=== PATIENT | male | born 1990 | race African-American/Black ===

== ENCOUNTER 2022-08-26 16:35 | Emergency (ER) | payer OTHER, SELFPAY ==
[2022-08-26 16:37] VITALS: BP 132/60; BP 138/75; PULSE 101; PULSE 114; RESP 18; TEMP 36.7; O2SAT 98; BMI 28.3
--- NOTE | 2022-08-26 16:49 | ED_ITS ---
HPI - Overdose General Chief Complaint: Overdose Stated Complaint: OVERDOSE. 4MG NARCAN GIVEN Time Seen by Provider: 08/26/22 16:44 Source: patient and EMS Mode of arrival: EMS Limitations: other (Patient not providing history.) History of Present Illness HPI Narrative: 32-year-old male presenting to the emergency department via ambulance from a residential for suspected opiate overdose, patient was found unresponsive by residential members, 4 mg of Narcan intranasally were administered with good success. Patient arrives to the emergency department and refuses to answer any questions he tells me he does not want to be here and does not need to be here. Unable to obtain history or review of systems. Patient's GCS 15, he is alert and oriented x3. Related Data Previous Rx's Medication Instructions Recorded naloxone 4 mg/actuation nasal 4 mg intranasal Q2M PRN opioid 08/26/22 spray (Narcan) overdose #2 ea Allergies Allergy/AdvReac Type Severity Reaction Status Date / Time No Known Allergies Allergy Verified 08/26/22 17:12 Review of Systems Review of Systems: Yes Unobtainable due to mental status PMFSH Past Medical History Attestation statement: The following information was validated with the patient. Source: old records reviewed and nursing notes reviewed Social History Social History Advance Directives: No Advance Directives Information Provided: No Physical Exam Vital Signs: Vital Signs: Last Vital Signs Temp 98.0 F 08/26/22 16:37 Pulse 101 H 08/26/22 16:37 Resp 18 08/26/22 16:37 BP 138/75 08/26/22 16:37 Pulse Ox 98 08/26/22 16:37 O2 Del Method 08/26/22 16:37 BMI result Body Mass Index 28.3 vss Appearance: Alert.? Oriented X3.? No acute distress.? Head: Normocephalic, atraumatic, no step-offs or deformities Eyes: Pupils equal, round and reactive to light.? CVS: Normal heart rate and rhythm.? Pulses normal.? Respiratory: No respiratory distress.? Breath sounds normal.? Abdomen: Soft and nontender.? Skin: Skin warm and dry.? Normal skin color.? Normal skin turgor.? Extremities: No lower extremity edema.? No calf ttp. 5/5 strength to bilateral upper and lower extremities Neuro: Oriented X 3.? No motor deficit.? No sensory deficit. GCS: 15 NIHSS- 0 Course Reevaluation(s) Reevaluation #1: CBC with no acute findings requiring intervention. Chemistry within normal limits. Ethanol negative. COVID negative. Urine and urine toxicology pending. Time: 17:16 Reevaluation #2: Sameer from recovery tried to speak to patient, patient refused assessment. Tells him that he is currently on Suboxone and does not need any resources. Time: 17:50 Reevaluation #3: Patient tells me he is feeling better at this time, initially studies feeling short of breath therefore chest x-ray was obtained to rule out any chest etiologies. Lungs are clear, regular rate and rhythm. GCS of 15, alert and oriented x4. Patient denies SI and HI. Again refusing resources. Patient would like to be discharged. He is agreeable to it chest x-ray prior to discharge. At this time patient will be discharged home will send Narcan to pharmacy. At time of discharge patient eating and drinking, ambulating with steady gait. Time: 20:16 Additional Reevaluation(s): CXR wnl. MDM - Overdose MDM Narrative Medical decision making narrative: 1645 32-year-old male presents with suspected opiate overdose, given intranasal Narcan with good results, refusing to give me a history, unwilling to answer my review of systems. Not cooperating with process. Security at the bedside. Physical examination benign Plan at this time is medical clearance and substance use disorder evaluation. Medical Records Attestation: I reviewed the patient's medical records. Lab Data Attestation: I reviewed the patient's lab results. Result diagrams: 08/26/22 16:48 08/26/22 16:48 Labs: Lab Results 08/26/22 08/26/22 08/26/22 Range/Units 16:48 16:48 16:48 WBC 6.1 (4.8-10.8) X10*3/uL RBC 5.93 H (4.60-5.80) X10*6/uL Hgb 14.0 (14.0-18.0) g/dl Hct 41.9 L (42.0-52.0) % MCV 70.7 L (80.0-98.0) fL MCH 23.6 L (27.0-33.0) pg MCHC 33.4 (31.0-36.0) g/dl RDW 15.4 (11.0-16.0) % Plt Count 261 (160-400) X10*3/uL MPV 8.8 L (9.4-12.4) fL Immature Gran % (Auto) 0.2 (0.0-0.4) % Neut % (Auto) 47.0 (45-73) % Lymph % (Auto) 39.6 (20-40) % Assumption % (Auto) 8.9 (2-11) % Eos % (Auto) 3.8 (0-4) % Baso % (Auto) 0.5 (0-2) % Lymph # (Auto) 2.4 (1.2-4.9) X10*3/uL Assumption # (Auto) 0.5 (0.1-1.2) X10*3/uL Eos # (Auto) 0.2 (0.0-0.4) X10*3/uL Baso # (Auto) 0.0 (0.0-0.2) X10*3/uL Abs Immat Gran (auto) 0.01 (0.00-0.03) X10*3/uL Absolute Neuts (auto) 2.9 (2.0-8.3) x10*3/uL Absolute Nucleated RBC 0.000 (0.0-0.012) X10*3/uL Nucleated RBC % (auto) 0.0 (0.0-0.2) /100WBC Sodium 139 (135-145) mmol/L Potassium 4.0 (3.3-5.1) mmol/L Chloride 102 (96-108) mmol/L Carbon Dioxide 26 (22-29) mmol/L Anion Gap 15 (12-20) BUN 13 (9-16) mg/dL Creatinine 1.23 (0.5-1.4) mg/dL Estim Creat Clear Calc 106.0 Estimated GFR > 60 Random Glucose 133 H (60-115) mg/dL Calcium 8.9 (8.4-10.2) mg/dL Total Bilirubin 0.8 (0.0-1.0) mg/dL AST 16 (5-37) U/L ALT 22 (0-40) U/L Alkaline Phosphatase 52 (39-117) U/L Total Protein 7.2 (6.5-8.0) g/dL Albumin 4.3 (3.5-5.0) g/dL Ethyl Alcohol < 10 mg/dL COVID-19 ([facility]) Negative (Negative) COVID-19 Clin Com See Note Critical Care Time Critical Care Time Critical Care Time: No Discharge Plan Discharge Clinical Impression: Drug overdose Patient Disposition: Home, Self-Care Instructions: Adult Overdose (ED) Additional Instructions: Take your medications as prescribed. If you were prescribed antibiotics today, it is important that you take your medication to their entirety, do not skip any doses, do not finish them early. Follow-up with your primary care provider this week. Return to the emergency department with new or worsening symptoms. Such as fevers, chills, chest pain, shortness of breath, nausea, vomiting, dizziness, headache, vision changes, lethargy In case of emergency call 911 Narcan has been sent to your pharmacy, please keep this on at all times, it can be life saving Prescriptions: New naloxone [Narcan] 4 mg/actuation spray,non-aerosol 4 mg intranasal Q2M PRN (Reason: opioid overdose) Qty: 2 0RF Rx Instructions: spray 1 dose into ONE nostril; alternate nostrils w each dose until help arrives Referrals: Physician,Unknown J [Primary Care Provider] - 2 days
--- NOTE | 2022-08-26 16:50 | PC.NURSE ---
pt refusing to globe changer. nurse charge rn aware. security at bedside to search/wand pt down. labwork obtained.
[2022-08-26 16:52] LABS: MANUAL DIFF FLAG NO
[2022-08-26 16:53] LABS: Basophils Percent Auto 0.5 % (0-2); Eosinophils Absolute Auto 0.2 X10*3/uL (0.0-0.4); Eosinophils Percent Auto 3.8 % (0-4); Hematocrit 41.9 % (42.0-52.0); Imm Gran Abs Auto 0.01 X10*3/uL (0.00-0.03); Imm Gran Pct Auto 0.2 % (0.0-0.4); Lymphocytes Absolute Auto 2.4 X10*3/uL (1.2-4.9); Lymphocytes Percent Auto 39.6 % (20-40); Mean Corpuscular HGB Conc 33.4 g/dl (31.0-36.0); Mean Corpuscular Hemoglobin 23.6 pg (27.0-33.0); Mean Corpuscular Volume 70.7 fL (80.0-98.0); Mean Platelet Volume 8.8 fL (9.4-12.4); Monocytes Absolute Auto 0.5 X10*3/uL (0.1-1.2); Monocytes Percent Auto 8.9 % (2-11); Neutrophils Absolute Auto 2.9 x10*3/uL (2.0-8.3); Platelet Count 261 X10*3/uL (160-400); Red Blood Count 5.93 X10*6/uL (4.60-5.80); Red Cell Distribution Width 15.4 % (11.0-16.0); White Blood Count 6.1 X10*3/uL (4.8-10.8)
[2022-08-26] MEDS: Acetaminophen 325 MG TABLET 650 MG PO (17:11)
[2022-08-26 17:12] LABS: Alanine Aminotransferase 22 U/L (0-40); Albumin Level 4.3 g/dL (3.5-5.0); Alkaline Phosphatase 52 U/L (39-117); Anion Gap 15 (12-20); Aspartate Amino Transferase 16 U/L (5-37); Bilirubin Total 0.8 mg/dL (0.0-1.0); Blood Urea Nitrogen 13 mg/dL (9-16); COVID-19 Test Negative (Negative); Calcium 8.9 mg/dL (8.4-10.2); Carbon Dioxide 26 mmol/L (22-29); Chloride 102 mmol/L (96-108); Estimated Glomerular Filt Rate > 60; Ethanol < 10 mg/dL; Glucose Random 133 mg/dL (60-115); Sodium 139 mmol/L (135-145); Total Protein 7.2 g/dL (6.5-8.0)
--- NOTE | 2022-08-26 17:50 | HO.SUDE ---
SUDE Patient is a 32 year old Irish speaking male who presented to [facility] ED after an accidental overdose. This song writer met with patient to offer support and referrals. Patient declined SUDE. Patient reports he is on Suboxone and not interested in detox. Patient did not answer additional questions Encouraged patient to inform staff if he would like to discuss his substance use further. Discussed case with patient's ED provider.
[2022-08-26 21:39] LABS: Amphetamine Screen Urine Not Detected (Not Detect); Barbiturates, Urine Not Detected (Not Detect); Benzodiazepines Screen Urine Not Detected (Not Detect); Cannabinoid Screen Urine POSITIVE (Not Detect); Cocaine Screen Urine Not Detected (Not Detect); Fentanyl, urine POSITIVE (Not Detect); Opiate Screen Urine Not Detected (Not Detect); Phencyclidine Screen Urine Not Detected (Not Detect)
== END 2022-08-26 21:53 | disposition home or self-care (01) ==
PROVIDERS: Physician Assistant; Emergency Provider Emergency Medicine
DX: T40.1X1A Poisoning by heroin, accidental (unintentional), initial encounter (principal); Y92.9 Unspecified place or not applicable; R06.02 Shortness of breath; Z20.822 Contact with and (suspected) exposure to COVID-19; Z71.51 Drug abuse counseling and surveillance of drug abuser; Z79.899 Other long term (current) drug therapy
CPT/HCPCS: 71045; 80053; 80307; 82077; 85025; 87635; 99284; 99285